=== PATIENT | female | born 1990 | race Caucasian/White ===

== ENCOUNTER 2017-08-21 09:00 | Inpatient (IN) ==
[2017-08-21] MEDS ORDERED: Naloxone 0.4 MG/ML INJ IVP PRN (09:39)
[2017-08-21] MEDS ORDERED: Metoclopramide 10 MG/2 ML VIAL IVP PRN (09:39)
[2017-08-21] MEDS ORDERED: Famotidine 20 MG/2 ML VIAL IVP PRN (09:39)
[2017-08-21] MEDS ORDERED: *HR* Nalbuphine 20 MG/ML AMPUL IVP PRN (09:39)
[2017-08-21 10:05] LABS: Basophils % 0.4 %; Eosinophils # 0.1 K/mcL (0.0-0.6); Eosinophils % 0.6 %; Hemoglobin 11.5 g/dL (11.5-15.4); Immature Granulocytes % 1.4 % (0-4); Lymphocytes # 1.6 K/mcL (0.6-4.6); Lymphocytes % 20.5 %; Mean Corpuscular HGB Conc 33.8 g/dL (31.6-35.5); Mean Corpuscular Hemoglobin 30.6 pg (28.0-33.3); Mean Corpuscular Volume 90.4 fL (83.0-100.0); Mean Platelet Volume 11.1 fL (9.4-12.4); Monocytes # 0.5 K/mcL (0.0-1.3); Monocytes % 6.6 %; Neutrophils # 5.6 K/mcL (1.6-8.9); Platelet Count 170 K/mcL (140-400); Red Blood Count 3.76 M/mcL (3.82-4.97); Segmented Neutrophils % 70.5 %
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
[2017-08-21] MEDS ORDERED: miSOPROStol 25 MCG TABLET PO PRN (10:16)
--- NOTE | 2017-08-21 11:03 | Anesthesia Evaluation PreOp ---
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 Any Significant HX Other Medical History: GERD, Other (depression/anxiety) Anesthesia History: No Prior Anesthetic Complications : Yes Test: Positive Alcohol Use: none Drug use: none Medications and Allergies Atorvastatin [Lipitor] 20 mg PO HS 11/16/16 [History] Gabapentin [Neurontin] 400 mg PO TID 11/16/16 [History] Pantoprazole Sodium [Protonix] 40 mg PO BID 11/16/16 [History] hydrOXYzine HCl [Hydroxyzine HCl] 25 mg PO TID 11/16/16 [History] 3 Allergy/AdvReac Type Severity Reaction Status Date / Time morphine Allergy See Verified 12/23/16 20:53 Comments ketorolac [From Toradol] AdvReac Vomiting Verified 12/23/16 20:53 ondansetron AdvReac Vomiting Verified 12/23/16 20:53 [From Zofran (as hydrochloride)] - Meds/Allergy Pre-op Review Medications Reviewed: Yes Allergies Reviewed: Yes Beta Blockers on Current Med List: No Anesthesia Results - Labs 08/21/17 09:30 Anesthesia Exam 123/80 104 16 fht 133 Height: 5'6" Weight: 91 kg NPO (# of Hours): 4 Pain Scale: 1 Pain Scale Used: Numeric (1 - 10) - HEENT Pupil (Motor): Pupils equal Mallampati: II Teeth: Poor dentition Oral Opening: Greater than 3 - CRAB MEAT PROCESSOR LOC: Oriented CRAB MEAT PROCESSOR Motor: Normal RUE, Normal LUE, Normal RLE, Normal LLE, Normal Face CR[employer] MEAT PROC[employer]OR Sensory: Normal: RUE, LUE, RLE, LLE, Face - Cardiac Rhythm: Regular Murmur: None - Pulmonary Breath Sounds: bilateral Clear Respiratory Effort: Symmetrical Anesthesia Assess/Plan ASA Score: 2 Modified Juan Luis Scale for Level of Consciousness: Cooperative, oriented, and tranquil Anesthetic Plan: Regional Autologous Blood: No Monitoring Plan: Standard Monitors Recovery Plan: Other (risks discussed, questions answered, consented)
[2017-08-21] MEDS ORDERED: *HR* FentaNYL (PF) 100 MCG/2 ML VIAL EP ONE (15:54)
[2017-08-21] MEDS ORDERED: *HR* Ropivacaine/PF 0.2% 10 ML AMPUL EP ONE (15:54)
[2017-08-21] MEDS ORDERED: Epidural Premix (fent/bupiv) 110 ML EP SCH (16:00)
[2017-08-21] MEDS ORDERED: *HR* Ropivacaine/PF 0.2% 10 ML AMPUL ONE (16:01)
[2017-08-21] MEDS ORDERED: *HR* FentaNYL (PF) 100 MCG/2 ML VIAL ONE (16:01)
[2017-08-21] MEDS ORDERED: Epidural Premix (fent/bupiv) 110 ML EP ONE ×2 (16:02→22:35)
--- NOTE | 2017-08-21 16:31 | Anesthesia Procedures ---
Date of Encounter: 08/21/17 Time of Encounter: 16:29 Procedures: Anesthesia - Epidural/Spinal Patient ID/Chart reviewed: Yes Patient examined: Yes OB Eval: Gestational age: 39 OB Eval: : 1 OB Eval: Hx Para: 0 OB Eval: Dilated at (cm): 3 OB Eval: Contractions: Non-stressed pattern Site Prep: Aseptic Technique, Sterile prep and drape, Povidone-Iodine 1% Patient position: upright Local Anesthetic: Lidocaine 1% Amount of Local Anesthetic used: 3 Touhy Needle Gauge: 18 Touhy Needle Depth (cm): 5 Catheter Depth at Skin (cm): 15 Test Dose Result: Negative Loading Dose: Fentanyl (mcg): 100 Loading Dose: Other: ropivicaine 0.2% 10 cc Loading Dose Administered: Thru Touhy Needle Infusion Med: 0.125% Bupivacaine w/ 2 mcg/ml Fentanyl Infusion Rate (mls/hr): 15 (pcea 5cc q 30") Catheter Secured in Place: Tegaderm Interspace Used: L2-L3 Loss of Resistance (PETRA): Yes Blood: No CSF: No Paresthesia: No Procedure: aseptic, VSS, tolerated well, effective Vitals + FHT's: nsg note
--- NOTE | 2017-08-21 16:53 | OB Labor Progress Note ---
Date of Encounter: 08/21/17 Time of Encounter: 16:51 Labor Progress Note - Subjective Subjective: Pt resting comfortable with epidural - Cervix Cervix: 4/50/-2 - Heart Tones Heart Tones: 125/moderate/+accels/-decels - [place]: q2 - Interventions Interventions: AROM for clear fluid - Plan Plan: Start pitocin per policy Anticipate Dr. Sade rudolph
[2017-08-21] MEDS ORDERED: Oxytocin 20 units/ LR 1000 mL 20 UNIT/1,000 ML BAG IVC SCH (18:00)
[2017-08-21] MEDS: Acetaminophen 325 MG TABLET PO PRN (18:13)
[2017-08-21] MEDS: Metoclopramide 10 MG/2 ML VIAL IVP PRN ×2 (18:13→23:54)
[2017-08-21] MEDS: Ringers Solution, Lactated 1,000 ML IVC SCH ×2 (18:14→21:56)
--- NOTE | 2017-08-21 19:42 | OB Labor Progress Note ---
Date of Encounter: 08/21/17 Time of Encounter: 19:40 Labor Progress Note - Subjective Subjective: Patient still very comfortable with epidural not feeling any contractions at this time - Cervix Cervix: 4/80/0 - Heart Tones Heart Tones: FHT's 140's reactive contractions - Lipscomb Lipscomb: IUPC placed contraction every 2 min irregular - Plan Plan: continue pit anticipate
[2017-08-22] MEDS: Acetaminophen 325 MG TABLET PO PRN
--- NOTE | 2017-08-22 01:15 | OB Labor Progress Note ---
Date of Encounter: 08/22/17 Time of Encounter: 01:12 Labor Progress Note - Subjective Subjective: Pt resting comfortably in bed - Cervix Cervix: 10/100/+1 per RN - Heart Tones Heart Tones: Baseline 190's with variability and early decels - [place]: Q 2-3 minutes - Interventions Interventions: Positional changes Trial of pushing - limited effectiveness - Plan Plan: Continue monitoring Conserve maternal energy for a short time and adoption counselor further about proper pushing technique Expect
[2017-08-22] MEDS ORDERED: Lidocaine 1% 20 ML MDV ONE (02:53)
--- NOTE | 2017-08-22 03:52 | OB/GYN Procedure Note ---
Delivery - Delivery Date: 08/22/17 Provider: Dayron Stuart Intrapartum events: other(please specify) ( tachycardia) Delivery induction: barker, misoprostol Delivery augmentation: rupture of membranes, pitocin Delivery monitor: external FHT, external uterine, internal uterine Anesthesia: local, epidural Estimated Blood Loss: 200 - (s) Infant A Delivery Date: 08/22/17 Delivery Time: 03:05 Presentation: vertex Position: KRUNAL Route of delivery: vacuum extraction Gender: Female Viability: Viable Pounds: 7 Ounces: 3 Weight Gram: 3.255 kg at 1 minute: 8 at 5 mins: 9 Shoulder Dystocia: not encountered Specimens collected: cord blood Placenta: spontaneous Cord: 3 umbilical vessels - Repair Episiotomy: midline Laceration Description: None - Complications Delivery complications: none - Disposition Mom disposition: stable in LDR disposition: stable in LDR - Comments Comments: Patient is a 27-year-old 1 para 0 at 39-1/7 weeks who presented for induction of labor secondary to term . Patient wanted be induced this and she possibly could she had favorable cervix so had a complicated delivery. Barker catheter and by mouth Cytotec was used to get labor going. Catheter fell out when she was 3-4 cm she was artificially ruptured after an epidural and she was 4 cm. Patient progressed appropriately became complete but had no pushing effort. Baby became tachycardic with heart tones in the 200s. We allowed the patient to push, she pushed for over an hour with minimal effort. Baby lost variability and started having some decelerations. It was decided this time that a operative delivery would be attempted. Infant's head was at the os 2 station and appeared to be adequate room. A midline episiotomy was cut due to hymenal band seemed to hold baby set up then a Kiwi vacuum was used and applied to the 's head and with a maximum pressure of 500 mmHg with 38 seconds of pulling were able to deliver a viable female infant in right occiput anterior presentation at 0305. There was no nuchal cord, no meconium, infant was bulb suctioned on the abdomen. Apgars were 8 at 1 minute, 9 at 5 minutes, infant weight was 7 lbs. 3 oz. 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 Stuart, anesthesia epidural, estimated blood loss was 200 mL. Perineum was evaluated she just at the midline episiotomy and other extensions noted. Dr Steve cShaefer PGY1 scrubbed in to assist in the repair and episiotomy was closed in usual fashion with 3-0 Vicryl. Cervix vagina was visualized intact. All needles lap sponge counts were correct 3 patient tolerated the delivery well. She will be observed 2 hours before being taken floor.
[2017-08-22] MEDS ORDERED: Measles/Mumps/Rubella Vacc 0.5 ML VIAL SQ PRN (05:34)
[2017-08-22] MEDS ORDERED: Acetaminophen 325 MG TABLET PO PRN (05:34)
[2017-08-22] MEDS ORDERED: Oxytocin 20 units/ LR 1000 mL 20 UNIT/1,000 ML BAG IVC SCH (05:34)
[2017-08-22] MEDS: *HR* HYDROcodone/Acet 5/325 mg TABLET PO PRN ×3 (06:45→20:18)
[2017-08-22] MEDS: Ibuprofen 600 MG TABLET PO PRN ×3 (06:45→20:17)
[2017-08-22] MEDS: Prenatal Vit/FA 1 EACH TABLET PO SCH (08:50)
[2017-08-23] MEDS: *HR* HYDROcodone/Acet 5/325 mg TABLET PO PRN (04:53)
[2017-08-23] MEDS: Ibuprofen 600 MG TABLET PO PRN (04:53)
[2017-08-23 07:09] LABS: Basophils % 0.2 %; Eosinophils # 0.1 K/mcL (0.0-0.6); Eosinophils % 0.9 %; Hematocrit 28.8 % (35.3-44.9); Immature Granulocytes % 1.1 % (0-4); Lymphocytes # 1.3 K/mcL (0.6-4.6); Lymphocytes % 11.2 %; Mean Corpuscular HGB Conc 32.6 g/dL (31.6-35.5); Mean Corpuscular Hemoglobin 30.3 pg (28.0-33.3); Mean Corpuscular Volume 92.9 fL (83.0-100.0); Mean Platelet Volume 10.7 fL (9.4-12.4); Monocytes # 0.7 K/mcL (0.0-1.3); Monocytes % 5.9 %; Neutrophils # 9.2 K/mcL (1.6-8.9); Platelet Count 115 K/mcL (140-400); Red Cell Distribution Width 14.6 % (11.5-14.5); Segmented Neutrophils % 80.7 %
[2017-08-23 07:28] LABS: Hemoglobin 9.4 g/dL (11.5-15.4)
[2017-08-23 08:44] VITALS: BP 116/82
--- NOTE | 2017-08-23 08:44 | Discharge Summary ---
Date of Encounter: 08/23/17 Time of Encounter: 08:41 - Discharge Diagnosis (1) Vaginal delivery Priority: Primary Status: Acute Comments: Delivered at 39w1d with vacuum assisted vaginal delivery. Episiotomy during labor to assist with delivery and repaired. Pt is meeting all post- milestones. OARRS reviewed and appropriate. Will be discharged with Milton for pain. (2) anemia Priority: Secondary Status: Acute Comments: Hb 9.4. No symptoms of anemia. Continue ferrous sulfate. (3) 39 weeks gestation of Priority: Secondary Status: Acute - Discharge Medications Prescriptions: HYDROcodone/Acet 5/325 mg [Milton 5-325 mg] 1 tab PO Q6HR PRN #20 tablet PRN Reason: Moderate Pain (4-6) Ibuprofen [Motrin] 600 mg PO Q6HR PRN #60 tablet PRN Reason: Cramping Promethazine [Phenergan] 25 mg PO Q8HR PRN #30 tablet PRN Reason: Nausea Benzocaine/Menthol [place] [Dermoplast [place]] 56 gm TP 1-3XD PRN #1 aerosol PRN Reason: Pain Docusate [Colace] 100 mg PO BID #60 capsule Ferrous Sulfate 325 mg PO DAILY #30 tablet. Home Medications: Atorvastatin [Lipitor] 20 mg PO HS 11/16/16 [History] Gabapentin [Neurontin] 400 mg PO TID 11/16/16 [History] Pantoprazole Sodium [Protonix] 40 mg PO BID 11/16/16 [History] hydrOXYzine HCl [Hydroxyzine HCl] 25 mg PO TID 11/16/16 [History] Benzocaine/Menthol [place] [Dermoplast [place]] 56 gm TP 1-3XD PRN #1 aerosol [Rx] Docusate [Colace] 100 mg PO BID #60 capsule 08/23/17 [Rx] Ferrous Sulfate 325 mg PO DAILY #30 tablet. 08/23/17 [Rx] HYDROcodone/Acet 5/325 mg [Milton 5-325 mg] 1 tab PO Q6HR PRN #20 tablet [Rx] Ibuprofen [Motrin] 600 mg PO Q6HR PRN #60 tablet 08/23/17 [Rx] Vit/FA 1 each PO DAILY tablet 08/23/17 [Rx] Promethazine [Phenergan] 25 mg PO Q8HR PRN #30 tablet 08/23/17 [Rx] Allergies/Adverse Reactions: 3 Allergy/AdvReac Type Severity Reaction Status Date / Time morphine Allergy See Verified 12/23/16 20:53 Comments ketorolac [From Toradol] AdvReac Vomiting Verified 12/23/16 20:53 ondansetron AdvReac Vomiting Verified 12/23/16 20:53 [From Zofran (as hydrochloride)] Data Procedures and tests throughout hospitalization: Laboratory Tests 08/21/17 08/23/17 09:30 06:52 WBC 8.0 11.4 H RBC 3.76 L 3.10 L Hgb 11.5 9.4 L D Hct 34.0 L 28.8 L MCV 90.4 92.9 MCH 30.6 30.3 MCHC 33.8 32.6 RDW 14.0 14.6 H Plt Count 170 115 L MPV 11.1 10.7 Immature Gran % 1.4 1.1 Seg Neutrophils % 70.5 80.7 Lymphocytes % 20.5 11.2 Monocytes % 6.6 5.9 Eosinophils % 0.6 0.9 Basophils % 0.4 0.2 Neutrophils # 5.6 9.2 H Lymphocytes # 1.6 1.3 Monocytes # 0.5 0.7 Eosinophils # 0.1 0.1 Basophils # 0.0 0.0 Labs on day of discharge: Labs from last 24 hours 08/23/17 06:52 WBC 11.4 H RBC 3.10 L Hgb 9.4 L D Hct 28.8 L MCV 92.9 MCH 30.3 MCHC 32.6 RDW 14.6 H Plt Count 115 L MPV 10.7 Immature Gran % 1.1 Seg Neutrophils % 80.7 Lymphocytes % 11.2 Monocytes % 5.9 Eosinophils % 0.9 Basophils % 0.2 Neutrophils # 9.2 H Lymphocytes # 1.3 Monocytes # 0.7 Eosinophils # 0.1 Basophils # 0.0 Date of admission: 08/21/17 09:16 Primary care physician: Cristin Pressley CNP Consults: 08/22/17 05:34 Consult to Commercial Lender [CONS] Routine Comment: Vaginal delivery, consult needed Discharging clinician: Steve Schaefer Anticipated date of discharge: 08/23/17 - Patient Status Disposition: Home, Self-Care Condition: Good Functional capacity at discharge: independent ambulation Overall status at discharge: patient is progressing back to baseline - Discharge Instructions Follow Up With: Cristin Pressley CNP [Primary Care Provider] - Dayron Stuart DO [Partnered Physician] - Additional Instructions: Take your medications as prescribed Additionally, use sitz baths and dermoplast spray to help with pain - Diet and Activity Activity: increase activity as tolerated Diet: advance to your usual diet Hospital Course Reason for admission: induction of labor Delivery: vacuum extraction Episiotomy: midline Laceration: 3rd degree Other procedures: none complications: none Discharge diagnosis: IUP at term delivered [place]ry baby: female Hospital course: - Delivery Date: 08/22/17 Provider: Dayron Stuart Intrapartum events: other(please specify) ( tachycardia) Delivery induction: barker, misoprostol Delivery augmentation: rupture of membranes, pitocin Delivery monitor: external FHT, external uterine, internal uterine Anesthesia: local, epidural Estimated Blood Loss: 200 - (s) A Delivery Date: 08/22/17 Infant Delivery Time: 03:05 Presentation: vertex Position: KRUNAL Route of delivery: vacuum extraction Gender: Female Viability: Viable Pounds: 7 Ounces: 3 Weight Gram: 3.255 kg at 1 minute: 8 at 5 mins: 9 Shoulder Dystocia: not encountered Specimens collected: cord blood Placenta: spontaneous Cord: 3 umbilical vessels - Repair Episiotomy: midline Laceration Description: None - Comments Comments: Delivery at 39-1/7 weeks who presented for induction of labor secondary to term . Pt had difficulty progressing during pushing, so vacuum assisted device and episiotomy were used to assist in delivery. Pt is doing well, pain controlled, and meeting all post- milestones. Time Attestation: Total time spent providing and/or coordinating discharge services: Time Spent: Less than 30 minutes Exam - Constitutional Vitals: Temp Pulse Resp BP Pulse Ox 97.8 F 94 16 111/77 99 08/22/17 19:00 08/22/17 19:00 08/22/17 19:00 08/22/17 19:00 08/22/17 19:00 General appearance IM: A&O X 3, no acute distress - Respiratory Respiratory exam: Present: CTAB - Cardiovascular Cardiovascular exam IM: Present: RRR, +S1, +S2 - GI/Abdominal GI/Abdominal exam IM: normal bowel sounds Incision: dry (bandage in place), intact - Uterine Tone: Firm Uterus Position: 2 Fingers Below Umbilicus - Extremities Exam Extremities exam IM: Present: pedal edema (mild bilaterally) - Neurological Exam Neurological exam: alert, CN II-XII intact, no focal deficits - Psychiatric Additional comments: Reports mood is "good" - Attending Attestation I examined this patient and my medical decision-making was reviewed with the Resident Physician. I agree with the documented findings, disposition and treatment plan as described except to the extent set forth below. Follow up with PCP for generalized anxiety disorder. Encouraged patient to not take vistaril for anxiety if she is alone with due to increased inability to awaken to stimulus. Adriane Padron CNM
[2017-08-23] MEDS: Prenatal Vit/FA 1 EACH TABLET PO SCH (08:52)
[2017-08-23] MEDS ORDERED: Benzocaine/Menthol 56 GM AEROSOL SPRAY TP PRN (09:26)
== END 2017-08-23 13:56 | disposition home or self-care (01) | DRG 560 ==
LOC: 1NENULAB 09:16 → 1NENUOBS 08-22 05:17
PROVIDERS: ADMIT Obstetrics & Gynecology; ATTEND Obstetrics & Gynecology